=== PATIENT | female | born 1990 | race African-American/Black ===

== ENCOUNTER 2016-08-21 00:06 | Emergency (ER) | payer SELFPAY ==
[~2016-08-21] VITALS: Ht 162.6 cm; Wt 84.5 kg
[~2016-08-21 00:06] MED LIST: ELIMITE 5% CREA60 GM TP; ENDOCET 5-3251 EACH PO; Feosol PO; IBUPROFEN800 MG PO; IRON325 MG PO; KEFLEX500 MG PO; LOTRIMIN AF24 GM TP; LOTRISONE15 GM TP; MACROBID100 MG PO; Motrin PO; NATALCARE RX1 TABLET PO; PRENATAL TABLE1 EAC3 PO; Percocet 5/325,Endoc PO; TERBINAFINE HC250 MG PO; TYLENOL REGULA325 MG PO; VISTARIL25 MG PO
[2016-08-21 01:13] LABS: HEMATOCRIT 33.2 % (36.0-46.0); MCH 28.9 PG (29.0-34.0); MCHC 31.9 G/DL (30.0-36.0); MCV 90.5 FL (83-99); MEAN PLAT.VOLUME 10.9 uM^3 (9.5-12.4); PLATELET COUNT 278 K/uL (156-360); RBC DIS.WIDTH-CV 14.6 % (11.8-14.6); RBC DIS.WIDTH-SD 49.1 % (39-53); RED BLOOD COUNT 3.67 M/uL (3.80-5.20)
[2016-08-21 01:27] LABS: CHLORIDE 106 mEq/L (99-109); POTASSIUM 3.9 mEq/L (3.7-5.4); SODIUM 139 mEq/L (136-147)
[2016-08-21 01:29] LABS: GLUCOSE 93 mg/dL (70-99)
[2016-08-21 01:30] LABS: ANION GAP 9 MEQ/L (2-14)
[2016-08-21 01:31] LABS: TOTAL BILIRUBIN 0.2 mg/dL (0.0-1.0)
[2016-08-21 01:33] LABS: ALKALINE PHOSPHATASE 53 IU/L (3-129); GFR ESTIMATE (CALCULATED) > 59 mL/min/
[2016-08-21 01:34] LABS: UREA NITROGEN (BUN) 13 mg/dL (9-23)
[2016-08-21 01:43] LABS: QUANTITATIVE HCG < 4.0 MIU/ML
[2016-08-21 03:41] LABS: ADD MIUA? NO; BILIRUBIN NEGATIVE; BLOOD NEGATIVE; COLOR STRAW ((YELLOW)); GLUCOSE (STRIP) NEGATIVE; KETONES NEGATIVE; LEUKOCYTES NEGATIVE; NITRITE NEGATIVE; PROTEIN (STRIP) NEGATIVE; SPECIFIC GRAVITY 1.009 (1.000-1.030); UCUL ADDED? NO; UROBILINOGEN 0.2 MG/DL (0.2-1.0)
[2016-08-21] MEDS ORDERED: NAPROXEN500 MG PO (04:05)
[2016-08-21] MEDS ORDERED: SKELAXIN800 MG PO (04:05)
[2016-08-21 04:17] VITALS: BP 118/78
== END 2016-08-21 04:23 | disposition home or self-care (01) ==
LOC: EME 00:06
DX: M54.5 Low back pain (principal); R10.30 Lower abdominal pain, unspecified
CPT/HCPCS: 80053; 81003; 84702; 85027; 99281; 99284